=== PATIENT | male | born 1970 | race Caucasian/White ===

== ENCOUNTER 2018-09-01 14:18 | Outpatient (REF) | payer OTHER, SELFPAY ==
[2018-09-01 21:36] LABS: HGB 15.5 g/dL (13.5-17.5); Mean Corp. HGB Concentration 33.7 g/dL (32.0-36.0); Mean Corpuscular Hemoglobin 31.6 pg (27.0-33.0); Mean Corpuscular Volume 93.9 fL (80-95); Mean Platelet Volume 10.8 fL (8.0-11.0); Platelet Count 244 x1000/uL (130-400); RBC Distribution Width 12.8 % (11.8-14.1); White Blood Cell Count 7.52 k/cumm (4.4-10.8)
[2018-09-01 22:28] LABS: ALT 44 U/L (12-78); AST 23 U/L (15-37); Albumin 4.6 g/dL (3.4-5.0); Alkaline Phosphatase 77 U/L (46-116); Anion Gap 10.7 mmol/L (3-11); BUN 13 mg/dL (7-18); Bilirubin, Total 1.1 mg/dL (0.2-1.0); CO2 27.3 mmol/L (21.0-32.0); CREATININE 0.99 mg/dL (0.70-1.30); Calcium 9.1 mg/dL (8.5-10.1); Chloride 101 mmol/L (98-107); Glucose 84 mg/dL (70-100); Potassium 3.8 mmol/L (3.5-5.1); Sodium 139 mmol/L (136-145); Total Protein 7.7 g/dL (6.4-8.2)
[2018-09-01 22:51] LABS: Cholesterol 303 mg/dL (50-200); HDL Cholesterol 59 mg/dL (40-60); LDL CHOLESTEROL 212 mg/dL (<100); Triglyceride 117 mg/dL (30-150)
== END 2018-09-01 14:38 ==
LOC: NCHCN 14:18
PROVIDERS: PCP Family Medicine; Visit Provider Family Medicine
DX: R07.9 Chest pain, unspecified (principal)
CPT/HCPCS: 80053; 80061; 83721; 85027

== ENCOUNTER 2018-09-08 06:56 | Outpatient (CLI) | payer OTHER, SELFPAY ==
--- NOTE | 2018-09-08 09:30 | ETT_ITS ---
*[facility]* *[facility]* [address] [place] [address] Stress Electrocardiography Vazquez protocol Date of study: 09/08/2018 *PATIENT PRESENTATION* Height: 175.3cm (69in) Blood Pressure: Weight: 82.7kg (182lb) BSA: 2.02m^2 Referring physician: Brenda Hernandez Ordering physician: Brenda Hernandez Impressions: Normal study after maximal exercise. Indication: R07.9. History: REASON FOR TESTING: CHEST PAIN ON 08/30. SHARP AND TIGHT TO MID CHEST WITH ASSOCIATED DIZZINESS, DID NOT FEEL WELL THE REST OF THE DAY AND DID GO TO DOCTOR ON THE FOLLOWING WEDNESDAY. PMH: HIGH CHOLESTEROL. FAMILY HX: FATHER- HYPERTENSION, HYPERCHOLESTEROLEMIA, CAROTID STENOSIS WITH SURGERY. DAUGHTER- AORTIC STENOSIS WITH AORTIC VALVE REPLACEMENT- 2 SURGERIES AT AGE 10 AND 12. SMOKING: NEVER SMOKER. EXCERCISE: SNOWSHOE AND SKIING IN THE WINTER, RUNNING IN THE REST OF THE YEAR. WALKS 30 MINS 3X/WEEK CURRENTLY. Risk factors: Family history of coronary artery disease. Dyslipidemia. Cholesterol: 303mg/dl. HDL: 59mg/dl. LDL: 59mg/dl. Triglycerides: 117mg/dl. ALLERGIES: NKDA MEDICATIONS: NONE. Protocol: Vazquez protocol. Baseline ECG: LAST EKG 09/01/18 SINUS RHYTHM, OCCASIONAL VEB. TODAY'S EKG- SINSU RHYTHM, HR 70. Stress protocol: + +---+ + !Stage !HR !BP (mmHg) ! + +---+ + !Baseline supine !70 !122/80 (94) ! + +---+ + !Baseline standing !79 !122/80 (94) ! + +---+ + !Stage I; 1.7mph, 10degrees; 3 min !97 !134/80 (98) ! + +---+ + !Stage II; 2.5mph, 12degrees; 3 min !121!160/90 (113)! + +---+ + !Stage III; 3.4mph, 14degrees; 3 min!141!170/94 (119)! + +---+ + !Stage IV; 4.2mph, 16degrees; 3 min !179!190/90 (123)! + +---+ + !Recovery; 1 min !160!160/80 (107)! + +---+ + !Recovery; 3 min !112!150/70 (97) ! + +---+ + !Recovery; 6 min !101!130/78 (95) ! + +---+ + !Recovery; 9 min !100!120/70 (87) ! + +---+ + * Stress results: The rate-pressure product for the peak heart rate and blood pressure was 20866ce Hg/min. Stress ECG: EXCERCISE TESTING ENDED IN 12 MINS, 17 SECS DUE TO FATIGUE. MAX HEART RATE WAS 174, 100% OF TARGET. SLIGHTLY HYPERTENSIVE BLOOD PRESSURE RESPONSE. METS: 13.66 ECTOPY: RARE PVC'S, NO INCREASE NOTED WITH EXCERCISE. ANGINA: NO REPORTED CHEST PAIN OR PRESSURE. ISCHEMIA: NO ISCHEMIC CHANGES NOTED. FUNCTIONAL CAPACITY: ABOVE AVERAGE CAPACITY. Study data: Reynaldo Jonas MD supervised and was readily available during the procedure. This study was interpreted by [facility]. Study status: Routine. Consent: The risks, benefits, and alternatives to the procedure were explained to the patient and informed consent was obtained. Procedure: Initial setup. A baseline ECG was recorded. Surface ECG leads and manual cuff blood pressure measurements were monitored. Heart sounds: Normal. Lung sounds: Normal. Treadmill exercise testing was performed using the Vazquez protocol. Study completion: The patient tolerated the procedure well and was discharged from the lab. Discharge: The patient left the laboratory in stable condition. Birthdate: Patient birthdate: 1970. Sex: Gender: male. Study date: Study date: 09/08/2018. Study time: 00:01 AM. Signature Documentation: The Stress ECG portion of this study was interpreted by Reynaldo Jonas MD. Electronically signed by Reyanldo Jonas 09/08/2018 14:33
== END 2018-09-08 07:16 ==
PROVIDERS: PCP Family Medicine; Visit Provider Family Medicine
DX: R07.9 Chest pain, unspecified (principal); R42 Dizziness and giddiness; E78.5 Hyperlipidemia, unspecified; Z82.49 Family history of ischemic heart disease and other diseases of the circulatory system
CPT/HCPCS: 93017

== ENCOUNTER 2019-03-28 08:15 | Outpatient (REF) | payer OTHER, SELFPAY ==
[2019-03-28 12:34] LABS: Calculated LDL 196 mg/dL; Cholesterol 283 mg/dL (<200); HDL Cholesterol 62 mg/dL (40-60); Triglyceride 126 mg/dL (30-150)
== END 2019-03-28 08:35 ==
LOC: NCHCN 08:15
PROVIDERS: PCP Family Medicine; Visit Provider Nurse Practitioner Family
DX: E78.5 Hyperlipidemia, unspecified (principal)
CPT/HCPCS: 80061

== ENCOUNTER 2019-10-16 10:49 | Outpatient (REF) | payer OTHER, SELFPAY ==
[2019-10-16 20:57] LABS: ALT 48 U/L (16-63); AST 26 U/L (15-37); Albumin 4.4 g/dL (3.4-5.0); Alkaline Phosphatase 69 U/L (46-116); Anion Gap 10.8 mmol/L (3-11); BUN 12 mg/dL (7-18); Bilirubin, Total 1.1 mg/dL (0.2-1.0); CO2 25.2 mmol/L (21.0-32.0); CREATININE 1.03 mg/dL (0.70-1.30); Calcium 8.9 mg/dL (8.5-10.1); Chloride 102 mmol/L (98-107); Glucose 105 mg/dL (74-106); Sodium 138 mmol/L (136-145); Total Protein 7.5 g/dL (6.4-8.2)
== END 2019-10-16 11:09 ==
LOC: NCHCN 10:49
PROVIDERS: PCP Family Medicine; Visit Provider Nurse Practitioner Family
DX: Z00.00 Encounter for general adult medical examination without abnormal findings (principal); E78.5 Hyperlipidemia, unspecified
CPT/HCPCS: 80053

== ENCOUNTER 2021-09-01 21:13 | Outpatient (REF) | payer OTHER, SELFPAY ==
[2021-09-01 21:12] LABS: ALT 34 U/L (16-63); AST 15 U/L (15-37); Albumin 4.6 g/dL (3.4-5.0); Alkaline Phosphatase 63 U/L (46-116); Anion Gap 7.2 mmol/L (3-11); BUN 13 mg/dL (7-18); Bilirubin, Total 1.1 mg/dL (0.2-1.0); CO2 27.8 mmol/L (21.0-32.0); CREATININE 0.9 mg/dL (0.70-1.30); Calcium 9.1 mg/dL (8.5-10.1); Calculated LDL 231 mg/dL (<100); Chloride 102 mmol/L (98-107); Cholesterol 306 mg/dL (<200); Glucose 90 mg/dL (74-106); HDL Cholesterol 54 mg/dL (40-60); Potassium 4.1 mmol/L (3.5-5.1); Sodium 137 mmol/L (136-145); Total Protein 7.6 g/dL (6.4-8.2); Triglyceride 109 mg/dL (<150)
[2021-09-03 10:55] LABS: HIV-1/2 Ag & Ab Screen Negative (Negative)
[2021-09-03 11:02] LABS: Hepatitis C Ab w Rflx HCV PCR Negative (Negative)
== END 2021-09-01 21:14 | disposition home or self-care (01) ==
LOC: NCHCN 21:13
PROVIDERS: PCP Family Medicine; Visit Provider Nurse Practitioner Family
DX: Z00.00 Encounter for general adult medical examination without abnormal findings (principal); Z11.4 Encounter for screening for human immunodeficiency virus [HIV]; E78.5 Hyperlipidemia, unspecified; F10.11 Alcohol abuse, in remission; Z11.59 Encounter for screening for other viral diseases
CPT/HCPCS: 80053; 80061; 86803; 87389

== ENCOUNTER 2021-09-30 11:12 | Outpatient (REF) | payer OTHER, SELFPAY ==
--- NOTE | 2021-09-30 10:17 | SKI_PTH ---
PATIENT: David Liu LOC: [facility]#:[id number] AGE/SX: 50/M ROOM: RE09/30/[address]: Natalee Jensen : 1970 BED: DIS: 09/30/2021 SPEC #: [id number] RECD: 09/30/21 16:44 STATUS: MATIAS REQ #: [id number] CHANTELL: 09/30/21 10:[address]: Natalee Jensen DEPT: Surgical Specimen RECD BY: Madalyn Orellana ENTERED: 09/30/21 16:44 SP TYPE: DONTA JACKSON DR: Brenda Hernandez Tissues: 1 - SKIN BIOPSY(SHAVE/PUNCH) Procedures: SKIN LEVEL 4 Comments: [id number]
== END 2021-09-30 11:13 | disposition home or self-care (01) ==
LOC: NCHCN 11:12
PROVIDERS: PCP Family Medicine; Visit Provider Nurse Practitioner Family
DX: B07.8 Other viral warts (principal)
CPT/HCPCS: 88305

== ENCOUNTER 2021-10-16 12:16 | Outpatient (REF) | payer OTHER, SELFPAY ==
[2021-10-16 15:58] LABS: ALT 32 U/L (16-63); AST 18 U/L (15-37); Albumin 4.1 g/dL (3.4-5.0); Alkaline Phosphatase 61 U/L (46-116); Anion Gap 8.3 mmol/L (3-11); BUN 11 mg/dL (7-18); CO2 27.7 mmol/L (21.0-32.0); Calculated LDL 99 mg/dL (<100); Chloride 104 mmol/L (98-107); Cholesterol 165 mg/dL (<200); Glucose 87 mg/dL (74-106); HDL Cholesterol 57 mg/dL (40-60); Potassium 4.5 mmol/L (3.5-5.1); Sodium 140 mmol/L (136-145); Total Protein 7.2 g/dL (6.4-8.2); Triglyceride 47 mg/dL (<150)
== END 2021-10-16 12:17 | disposition home or self-care (01) ==
LOC: NCHCN 12:16
PROVIDERS: PCP Family Medicine; Visit Provider Nurse Practitioner Family
DX: E78.5 Hyperlipidemia, unspecified (principal); F10.11 Alcohol abuse, in remission
CPT/HCPCS: 80053; 80061

== ENCOUNTER 2022-09-08 11:22 | Outpatient (REF) | payer OTHER, SELFPAY ==
[2022-09-08 15:09] LABS: Calculated LDL 84 mg/dL (<100); Cholesterol 165 mg/dL (<200); HDL Cholesterol 70 mg/dL (40-60); Triglyceride 55 mg/dL (<150)
== END 2022-09-08 11:23 | disposition home or self-care (01) ==
LOC: NCHCN 11:22
PROVIDERS: PCP Family Medicine; Visit Provider Nurse Practitioner Family
DX: Z00.00 Encounter for general adult medical examination without abnormal findings (principal); E78.5 Hyperlipidemia, unspecified; F10.11 Alcohol abuse, in remission
CPT/HCPCS: 80061

== ENCOUNTER 2022-11-18 13:44 | Outpatient (REF) | payer OTHER, SELFPAY ==
[2022-11-18 15:38] LABS: Calculated LDL 105 mg/dL (<100); Cholesterol 183 mg/dL (<200); HDL Cholesterol 71 mg/dL (40-60); Triglyceride 37 mg/dL (<150)
== END 2022-11-18 13:45 | disposition home or self-care (01) ==
LOC: NCHCN 13:44
PROVIDERS: PCP Family Medicine; Visit Provider Nurse Practitioner Family
DX: E78.5 Hyperlipidemia, unspecified (principal)
CPT/HCPCS: 80061

== ENCOUNTER 2023-10-05 10:05 | Outpatient (REF) | payer MEDICARE, SELFPAY ==
[2023-10-05 14:39] LABS: ALT 31 U/L (16-63); AST 17 U/L (15-37); Albumin 4.4 g/dL (3.4-5.0); Alkaline Phosphatase 69 U/L (46-116); BUN 22 mg/dL (7-18); Bilirubin, Total 1.1 mg/dL (0.2-1.0); CREATININE 0.9 mg/dL (0.70-1.30); Calcium 9.5 mg/dL (8.5-10.1); Calculated LDL 88 mg/dL (<100); Chloride 106 mmol/L (98-107); Cholesterol 173 mg/dL (<200); Estimated GFR 102.76 (mL/min/1.73m2); Glucose 95 mg/dL (74-106); HDL Cholesterol 74 mg/dL (40-60); Potassium 4.8 mmol/L (3.5-5.1); Sodium 142 mmol/L (136-145); Total Protein 6.9 g/dL (6.4-8.2); Triglyceride 57 mg/dL (<150)
== END 2023-10-05 10:06 | disposition home or self-care (01) ==
LOC: NCHCN 10:05
PROVIDERS: PCP Family Medicine; Visit Provider Nurse Practitioner Family
DX: E78.5 Hyperlipidemia, unspecified (principal)
CPT/HCPCS: 80053; 80061

== ENCOUNTER 2024-10-06 14:45 | Outpatient (REF) | payer MEDICARE, SELFPAY ==
[2024-10-06 15:05] LABS: ALT 29 U/L (16-63); AST 16 U/L (15-37); Albumin 4.4 g/dL (3.4-5.0); Alkaline Phosphatase 71 U/L (46-116); Anion Gap 6.7 mmol/L (3-11); BUN 18 mg/dL (7-18); Bilirubin, Total 1.3 mg/dL (0.2-1.0); CO2 30.3 mmol/L (21.0-32.0); CREATININE 0.9 mg/dL (0.70-1.30); Calcium 9.4 mg/dL (8.5-10.1); Calculated LDL 104 mg/dL (<100); Chloride 103 mmol/L (98-107); Cholesterol 183 mg/dL (<200); Estimated GFR 102.12 (mL/min/1.73m2); Glucose 93 mg/dL (74-106); HDL Cholesterol 71 mg/dL (>or=40); Potassium 4.7 mmol/L (3.5-5.1); Sodium 140 mmol/L (136-145); Total Protein 7.1 g/dL (6.4-8.2); Triglyceride 44 mg/dL (<150)
== END 2024-10-06 14:46 | disposition home or self-care (01) ==
LOC: NCHCN 14:45
PROVIDERS: PCP Family Medicine; Visit Provider Nurse Practitioner Family
DX: Z00.00 Encounter for general adult medical examination without abnormal findings (principal)
CPT/HCPCS: 80053; 80061

== ENCOUNTER 2025-01-30 13:46 | Outpatient (CLI) | payer OTHER, SELFPAY ==
--- NOTE | 2025-01-30 08:15 | DI.RAD_ITS ---
Exam(s) XR HIP RT COMPLETE AP PELVIS EXAM: XR HIP RT COMPLETE AP PELVIS CLINICAL HISTORY: RIGHT HAMSTRING TENDINITIS. TECHNIQUE: 2D digital imaging was performed. Two views COMPARISON: No exams were available for comparison FINDINGS: BONES: No acute fracture is present. No bony destructive lesion is seen. JOINTS: No dislocation present. The hip joint spaces are maintained. There is minimal acetabular spurring bilaterally. The SI joints and pubic symphysis are unremarkable. SOFT TISSUE: Normal. IMPRESSION: No acute abnormality. DATA REPOSITORY: RADIATION DOSE DELIVERED:
== END 2025-01-30 13:47 | disposition home or self-care (01) ==
LOC: DIORS 13:46
PROVIDERS: PCP Nurse Practitioner Family; Visit Provider Student in an Organized Health Care Education/Training Program
DX: M76.891 Other specified enthesopathies of right lower limb, excluding foot (principal)
CPT/HCPCS: 73502

== ENCOUNTER 2025-02-08 04:22 | Outpatient (CLI) | payer OTHER, SELFPAY ==
--- NOTE | 2025-02-08 06:15 | DI.MRI_ITS ---
Exam(s) MR LOWER JOINT RT WO EXAM: MR LOWER JOINT RT WO CLINICAL HISTORY: R HIP PAIN,ischial bursitis rt side, hamstring tendonitis rt thigh,m76.891, TECHNIQUE: Multiplanar multisequence MRI of the hip was performed. COMPARISON: CR XR HIP RT COMPLETE AP PELVIS from 01/30/2025 FINDINGS: MARROW:There is no evidence of fracture, bone contusion, nor avascular necrosis. There are no significant osseous lesions.There is no significant osseous excrescence at the femoral head-neck junction to suggest the presence of cam- type DACIA. HIP JOINT SPACE: Minimal degenerative changes. No obvious chondral defects. There are no degenerative subarticular cysts.There is no hypertrophy of the ligamentum teres nor signal abnormality at the fovea centralis. LABRUM: Small focus of signal abnormality in the anterosuperior labrum may represent a small labral tear. There is no evidence of adjacent paralabral cysts. TENDONS: There is some signal abnormality in the gluteus medius tendon lateral to the greater trochanter consistent with tendinitis. BURSAE: There is no evidence of trochanteric bursitis. There is no evidence of iliopsoas bursitis. ISCHIAL TUBEROSITY/HAMSTRING: There is some focal signal abnormality in the hamstrings common insertion tendon at level the right ischial tuberosity, consistent with tendinitis or partial tearing. Similar finding not seen on the opposite-left side. OTHER: There is no abnormal intramuscular signal within the quadratus femoris to suggest the presence of impingement syndrome at this level. Incidentally noted is hydrocele in the left hemiscrotum IMPRESSION: 1. Some signal abnormality in the gluteus medius tendon lateral to the greater trochanter consistent with tendinitis. There is no trochanteric bursitis. 2. Increased signal in the ipsilateral right common hamstrings tendon at the level of the ischial tuberosity consistent mild intrasubstance tearing at this level. There is no full-thickness tear nor retraction. There is no significant bone edema in the ipsilateral ischial tuberosity itself. 3. Small focus of signal abnormality in the anterosuperior labrum. May represent small labral tear. There is no paralabral cyst. DATA REPOSITORY:
== END 2025-02-08 04:42 ==
LOC: DI 04:22
PROVIDERS: PCP Nurse Practitioner Family; Visit Provider Student in an Organized Health Care Education/Training Program
DX: M70.71 Other bursitis of hip, right hip (principal); M76.891 Other specified enthesopathies of right lower limb, excluding foot
CPT/HCPCS: 73721

== ENCOUNTER 2025-02-27 13:06 | Outpatient (CLI) | payer OTHER, SELFPAY ==
[2025-02-27 13:34] VITALS: BP 112/70; PULSE 57; RESP 18; TEMP 36.5; O2SAT 100
[2025-02-27 14:03] VITALS: PULSE 57; O2SAT 100
[2025-02-27 14:10] VITALS: PULSE 64; O2SAT 100
--- NOTE | 2025-02-27 14:14 | PDOC.PAIN_ITS ---
Date of service: 02/27/25 Time of Service: 14:17 Pain Managment Procedure Note Procedure Note Procedure Note: Ultrasound guided bursa injection injection ? Location: Right ischial bursa ? Pre-procedure Diagnosis:? M70.71 Right ischial bursitis ? Post-procedure Diagnosis:? The same as above ? Sedation: none? Estimated blood loss: < 1 ml ? Surgeon:? Kale Stokes MD Comment:ISCHIAL TUBEROSITY/HAMSTRING: There is some focal signal abnormality in the hamstrings common insertion tendon at level the right ischial tuberosity, consistent with tendinitis or partial tearing. Similar finding not seen on the opposite-left side. ? Procedure Detail:?? The procedure and potential risks were explained to the patient and informed written consent was obtained. Time out was performed in procedure room with nursing staff confirming the patient's identity, procedure to be performed, allergies, and any blood thinning or anti-platelet medications. Sterile gloves were used, a face mask was worn, and new single dose vials of all medications were used with the top being swabbed with alcohol and given time to dry prior to withdrawal of medication.? Trigger points were palpated and confi rmed to reproduce the patient?s pain symptoms.? Pre-injection ultrasound scanning of the area of interest was performed using Linear transducer, identifying relevant anatomy, landmarks, and neurovascular structures allowing for optimal needle path. The site was then prepared in the usual sterile fashion, using thorough Chlorhexadine preparation of the skin and sterile draping. The same ultrasound transducer was then passed into the sterile field using sterile probe cover and sterile ultrasound gel. Using high-frequency ultrasound probe with sterile cover target was identified- between ischium and hamstring tendon..? ? A 20-gauge 4 inch hyperechoic needle was advanced to the target.? following negative aspiration a total of 4 ml from a mixture of 0.5% bupivacaine and 40 mg Depo-Medrol was injected.? ? The patient tolerated the procedure well. Patient discharged home in stable condition. PAIN: PRE-PROCEDURE 2/10 POST-PROCEDURE 0/10 Plan:? Follow up prn. Coding Conscious Sedation used for procedure: No CPT Codes: Inj,Bursa/Tend w/US Large; Iliopsoas Bursa Inject w/US*BILA* - [id number] ([id number]) Additional Codes: Date of Service () Diagnoses: M70.71 Right ischial bursitis
[2025-02-27] MEDS: Nerve Block Tray 1 EACH MC (14:17)
[2025-02-27] MEDS: methylPREDNISolone ACETATE 40 MG/ML VIAL IJ (14:17)
[2025-02-27] MEDS: Bupivacaine 0.5% Pres-Free 10 ML VIAL IJ (14:17)
== END 2025-02-27 13:07 | disposition home or self-care (01) ==
LOC: PC 13:07
PROVIDERS: PCP Nurse Practitioner Family; Visit Provider Anesthesiology Pain Medicine
DX: M70.71 Other bursitis of hip, right hip (principal)
CPT/HCPCS: 20611; J0665; J1010